=== PATIENT | female | born 1940 | race Caucasian/White ===

== ENCOUNTER 2017-09-13 17:03 | Emergency (ER) | payer MEDICARE, OTHER ==
[~2017-09-13] VITALS: Ht 160 cm; Wt 88.5 kg
[~2017-09-13 17:03] MED LIST: AMLO5 PO; GABA100 PO; Levaquin500 MG PO; METF500 PO; METO50 PO; Norco 5-325 Ta1 EACH PO; OMEPRAZOLE MAGN20 MG PO; PARO10 PO; PRAV20 PO; Pyridium200 MG PO; RANI150 PO; TOPI100 PO
[2017-09-13 18:28] LABS: BASOPHILS ABSOLUTE AUTO 0.03 K/mm3 (0.00-0.23); BASOPHILS PERCENT AUTO 1 % (0-2); EOSINOPHILS PERCENT AUTO 4 % (0-6); Hematocrit 41.3 % (33.0-51.0); Hemoglobin 13.3 g/dL (11.5-16.0); IMMATURE GRAN ABSOLUTE AUTO 0.01 K/mm3 (0.00-0.10); IMMATURE GRAN PERCENT AUTO 0 % (0-1); LYMPHOCYTES ABSOLUTE AUTO 1.67 K/mm3 (0.84-5.20); LYMPHOCYTES PERCENT AUTO 29 % (21-46); MONOCYTES ABSOLUTE AUTO 0.87 K/mm3 (0.16-1.47); MONOCYTES PERCENT AUTO 15 % (4-13); Mean Corpuscular HGB 29.9 pg (26.0-34.0); Mean Corpuscular HGB Conc 32.2 g/dL (31.5-36.5); Mean Corpuscular Volume 93 fL (80-100); NEUTROPHILS ABSOLUTE AUTO 2.97 K/mm3 (1.96-9.15); NEUTROPHILS PERCENT AUTO 52 % (41-73); Platelet Count 199 K/mm3 (150-400); RDW Coefficient Variation 13.2 % (11.7-14.2); Red Blood Cell Count 4.45 M/mm3 (3.80-5.20); White Blood Cell Count 5.75 K/mm3 (4.00-11.30)
[2017-09-13] MEDS ORDERED: Prednisone10 MG PO (18:51)
== END 2017-09-13 19:08 | disposition home or self-care (01) ==
LOC: ER 17:03
PROVIDERS: Physician Assistant
DX: M35.3 Polymyalgia rheumatica (principal); K21.9 Gastro-esophageal reflux disease without esophagitis; E11.40 Type 2 diabetes mellitus with diabetic neuropathy, unspecified; I10 Essential (primary) hypertension; F32.9 Major depressive disorder, single episode, unspecified; E78.5 Hyperlipidemia, unspecified; J45.909 Unspecified asthma, uncomplicated; Z88.0 Allergy status to penicillin; Z88.5 Allergy status to narcotic agent; Z91.041 Radiographic dye allergy status; Z79.51 Long term (current) use of inhaled steroids; Z79.899 Other long term (current) drug therapy
CPT/HCPCS: 85025; 85651; 86140; 99283

== ENCOUNTER → 2019-01-21 | Outpatient (CLI) | payer MEDICARE, OTHER ==
[~2019-01-21] MED LIST changes: +Prednisone10 MG PO
[2019-01-27 09:08] LABS: BRUSHITE 4.26 ratio (0.00-3.00); CALCIUM OXALATE 9.71 ratio (0.00-6.00); CALCIUM, URINE 177.6 mg/24 hr (100.0-300.0); CALCIUM, URINE 22.2 mg/dL (Not Estab.); CHLORIDE URINE 73 (110-250); CITRIC ACID (CITRATE) 824 mg/L (Not Estab.); CITRIC ACID(CITRATE) 659 mg/24 hr (320-1240); CREATININE, URINE 760.8 mg/24 hr (800.0-1800.0); CREATININE, URINE 95.1 mg/dL (Not Estab.); MAGNESIUM, URINE 5.5 mg/dL (Not Estab.); MONOSODIUM URATE 5.44 ratio (0.00-4.00); OSMOLALITY, URINE 524 (300-900); SODIUM, URINE 113 mmol/L (Not Estab.); SODIUM, URINE 90 (39-258); STRUVITE 0.05 ratio (0.00-1.00); URIC ACID 0.61 ratio (0.00-1.20); URINE VOLUME 800 mL/24 hr (600-1600); URINE VOLUME (PRESERVATIVE) 800 mL/24 hr (600-1600)
== END | disposition home or self-care (01) ==
LOC: LAB 07:00 → LAB SHORT 07:00
PROVIDERS: Urology
DX: N20.2 Calculus of kidney with calculus of ureter (principal)
CPT/HCPCS: 81003; 81050; 82131; 82140; 82340; 82436; 82507; 82570; 83735; 83935; 83945; 84105; 84133; 84300; 84392; 84560

== ENCOUNTER → 2022-05-11 | Outpatient (CLI) | payer MEDICARE ==
[~2022-05-11] MED LIST changes: +ATOR20 PO; +Aspir 8181 MG PO; +FURO20 PO; +GABA300 PO; +METO50ER PO; +OMEP20ER PO; +OXYGEN; +SULTRIDS PO; +Ventolin/Prove6.7 GM INH
== END | disposition home or self-care (01) ==
LOC: LAB SHORT 17:20 → LAB 17:20
DX: R30.0 Dysuria (principal)
CPT/HCPCS: 87077; 87086; 87186

== ENCOUNTER → 2022-05-17 | Outpatient (CLI) | payer MEDICARE, OTHER | END | disposition home or self-care (01) | LOC: PLD 14:56 → LAB SHORT 14:56 | DX: L72.9 Follicular cyst of the skin and subcutaneous tissue, unspecified (principal) | CPT/HCPCS: 88304 ==

== ENCOUNTER → 2022-05-20 | Outpatient (CLI) | payer MEDICARE, OTHER | END | disposition home or self-care (01) | LOC: LAB SHORT 17:01 → LAB 17:01 | DX: N39.0 Urinary tract infection, site not specified (principal) | CPT/HCPCS: 87086 ==

== ENCOUNTER 2022-09-12 10:53 | Day surgery (SDC) | payer MEDICARE, OTHER ==
[~2022-09-12] VITALS: Ht 160 cm; Wt 88.8 kg
[2022-09-12] MEDS ORDERED: DULO60 PO (12:10)
[2022-09-12] MEDS ORDERED: PRED5 PO (12:16)
[2022-09-12] MEDS ORDERED: GUAI600T33 PO (12:18)
--- NOTE | 2022-09-12 13:59 | NUR ---
09/12/22 1359 ARTUR HICKS 10MLS OF LIDOCAINE 1% WITH EPI 1:200,000 POURED ONTO STERILE FIELD FOR USE DURING CASE.
--- NOTE | 2022-09-12 14:54 | NUR ---
09/12/22 5024 LESLEY DEE VERY BRIANNA PATIENT. DID NOT HAVE ANY PAIN OR DISCOMFORT. EATING AND DRINKING W/O DIFFICULTY.
== END 2022-09-12 14:50 | disposition home or self-care (01) ==
LOC: ORSCSDS 10:53
PROVIDERS: Otolaryngology
PROC: 03BT0ZX Excision of Left Temporal Artery, Open Approach, Diagnostic (ICD-10-PCS; principal; 2022-09-12 12:30)
DX: M31.6 Other giant cell arteritis (principal); I10 Essential (primary) hypertension; J45.909 Unspecified asthma, uncomplicated; E11.9 Type 2 diabetes mellitus without complications; J44.9 Chronic obstructive pulmonary disease, unspecified; Z79.899 Other long term (current) drug therapy; Z79.84 Long term (current) use of oral hypoglycemic drugs
CPT/HCPCS: 82947; 88307; 88313; J2001; J2250; J3010; J7120

== ENCOUNTER → 2024-01-24 | Outpatient (CLI) | payer MEDICARE, OTHER ==
[~2024-01-24] MED LIST changes: +DULO60 PO; +GUAI600T33 PO; +PRED5 PO
[2024-01-24 17:02] LABS: Source, Urine Voided
[2024-01-24 17:17] LABS: Appearance, Urine Hazy (Clear); Bilirubin, Urine Neg (Neg); Blood, Urine 5+ (Neg); Color, Urine Yellow (P-Yellow); Glucose Qualitative, Urine 2+ (Neg); Ketones, Urine 1+ (Neg); Leukocyte Esterase, Urine 2+ (Neg); Nitrite, Urine Neg (Neg); Protein, Urine 2+ (Neg); Urobilinogen, Urine NORM (Normal)
[2024-01-24 17:23] LABS: Red Blood Cells, Urine 50-100 /hpf (0-2); Squamous Epithelial Cells Few /hpf (Few)
[2024-01-24 17:24] LABS: Bacteria Mod /hpf
[2024-01-24 17:25] LABS: Transitional Epithelial Cells Rare /hpf (0-Rare)
== END ==
LOC: LAB SHORT 17:00 → LAB 17:00 → LAB FUT 01-23 14:05
PROVIDERS: Internal Medicine
DX: N39.0 Urinary tract infection, site not specified (principal)
CPT/HCPCS: 81001; 87086

== ENCOUNTER 2024-03-30 11:39 | Observation (INO) | payer MEDICARE, OTHER ==
[~2024-03-30] VITALS: Ht 160 cm; Wt 93.9 kg
[2024-03-30 12:55] LABS: BASOPHILS ABSOLUTE AUTO 0.03 K/mm3 (0.00-0.23); BASOPHILS PERCENT AUTO 0 % (0-2); EOSINOPHILS ABSOLUTE AUTO 0.22 K/mm3 (0.00-0.68); EOSINOPHILS PERCENT AUTO 3 % (0-6); Hematocrit 41.9 % (33.0-51.0); Hemoglobin 13.4 g/dL (11.5-16.0); IMMATURE GRAN ABSOLUTE AUTO 0.02 K/mm3 (0.00-0.10); IMMATURE GRAN PERCENT AUTO 0 % (0-1); LYMPHOCYTES ABSOLUTE AUTO 2.05 K/mm3 (0.84-5.20); LYMPHOCYTES PERCENT AUTO 29 % (21-46); MONOCYTES PERCENT AUTO 7 % (4-13); Mean Corpuscular HGB 30.1 pg (26.0-34.0); Mean Corpuscular Volume 94 fL (80-100); Mean Platelet Volume 9.9 fL (9.1-12.4); NEUTROPHILS ABSOLUTE AUTO 4.28 K/mm3 (1.96-9.15); NEUTROPHILS PERCENT AUTO 60 % (41-73); Platelet Count 265 K/mm3 (150-400); RDW Coefficient Variation 13.9 % (11.7-14.2); RDW Standard Deviation 47.8 fL (35.1-46.3); Red Blood Cell Count 4.45 M/mm3 (3.80-5.20)
[2024-03-30] MEDS ORDERED: Meclizine HCl 25 MG Tab PO ONE (12:55)
[2024-03-30 13:00] LABS: Albumin, Blood 3.3 g/dL (3.4-5.0); Albumin/Globulin Ratio 0.8 (0.8-1.8); Bilirubin, Total 0.2 mg/dL (0.1-1.0); Bun/Creatinine Ratio 25.6 (12.0-20.0); Calcium, Blood 9.7 mg/dL (8.5-10.1); Creatinine, Blood 0.74 mg/dL (0.40-1.00); Globulin, Blood 4.1 g/dL (2.2-4.0); Potassium, Blood 3.8 mmol/L (3.5-5.5); Total Protein, Blood 7.4 g/dL (6.4-8.2)
[2024-03-30] MEDS ORDERED: NS 1,000 ML IV SCH (13:00)
[2024-03-30 14:11] LABS: Source, Urine Clean Catch
[2024-03-30 14:19] LABS: Bilirubin, Urine Neg (Neg); Blood, Urine 3+ (Neg); Glucose Qualitative, Urine Neg (Neg); Ketones, Urine Neg (Neg); Leukocyte Esterase, Urine Neg (Neg); Nitrite, Urine Neg (Neg); Protein, Urine 1+ (Neg); Urobilinogen, Urine NORM (Normal)
[2024-03-30 14:35] LABS: Appearance, Urine Hazy (Clear); Color, Urine Pale Yellow (P-Yellow)
[2024-03-30 14:36] LABS: Bacteria Many /hpf; Calcium Oxalate Crystals Few /hpf; Squamous Epithelial Cells Mod /hpf (Few)
[2024-03-30] MEDS ORDERED: Magnesium Hydroxide Conc 10 ML UDC PO PRN (14:50)
[2024-03-30] MEDS ORDERED: FLU VACC TS2024-25(6MOS UP)/PF 45 MCG/0.5 ML SYRINGE IM SCH (14:50)
[2024-03-30] MEDS ORDERED: Acetaminophen 325 MG TABLET PO PRN (14:55)
[2024-03-30] MEDS ORDERED: Aspirin 325 MG Tab PO SCH (15:00)
[2024-03-30] MEDS ORDERED: HydrALAZINE HCl 20 MG / ML 1ML Vial IV PRN (15:00)
[2024-03-30] MEDS ORDERED: LORazepam 2 MG/ML 1ML Injection IV PRN (15:05)
[2024-03-30 16:02] VITALS: BP 203/109
[2024-03-30] MEDS ORDERED: Insulin Human Lispro 100 Units/ML 3ML Syringe SC SCH (16:30)
[2024-03-30 17:43] VITALS: BP 180/90
[2024-03-30] MEDS ORDERED: CENTRUM SILVER1 EAC2 PO (18:04)
[2024-03-30] MEDS ORDERED: Percocet 10-321 EACH PO (18:07)
--- NOTE | 2024-03-30 18:24 | NUR ---
SHIFT SUMMARY PT A&OX4-FORGETFUL AT TIMES, AMB TO THE B[facility] W/ 1P ASSIST, TOLERATING PO, AND DENIED PAIN. PT WAS HYPERTENSIVE UPON ARRIVAL TO THE FLOOR AND MEDICATED PER EMAR. BP IMPROVED, BUT REMAINS ELEVATED. PT CONT TO C/O DIZZINESS W/ MOVEMENT. PT PLAN TO HAVE MRI TONIGHT. NO OTHER ACUTE CHANGES. CALL LIGHT WITHIN REACH AND PT ABLE TO MAKE NEEDS KNOWN.
[2024-03-30 19:25] VITALS: BP 151/70
[2024-03-30] MEDS ORDERED: Docusate Sodium 100 MG Cap PO SCH (21:00)
[2024-03-31] VITALS (8 sets, daily range): BP systolic 137–208; BP diastolic 55–118
[2024-03-31] MEDS ORDERED: OxyCODONE 10/Acetamin 325 TABLET PO PRN (06:20)
--- NOTE | 2024-03-31 07:46 | NUR ---
END OF SHIFT SUMMARY PT WOKE UP AT 0600 HAVING WHAT APPEARED TO BE A PANIC ATTACK. SHE WAS SCREAMING AND CRYING VERY LOUDLY AND BEGGING FOR HELP. SHE WAS BREATHING VERY HARD AND DRENCHED IN SWEAT. SHE SAID HER LEGS HAVE NEVER HURT THIS BAD AND SHE WAS BEGGING FOR HER HOME PERCOCET WHICH HAS NOT BEEN ORDERED. SHE SAID SHE WAS WITHDRAWING FROM HER PAIN MEDS AND FELT LIKE SHE WAS "DYING". SHE SAID, "IF YOU GUYS ARENT GOING TO GIVE ME MY PAIN PILLS THEN JUST PUT ME ON HOSPICE AND LET ME !!!". MD NOTIFIED. PERCOCET REORDERED. PRESCRIPTION IS 1-2 TABS BUT PT SAYS SHE "ALWAYS TAKES 2". 2 GIVEN. 1 HOUR LATER PT IS ALERT AND HAPPY AND SAYS SHE DOESNT WANT TO ANYMORE AND THAT HER PAIN IS GONE.
[2024-03-31] MEDS ORDERED: Enoxaparin 40 MG/0.4 ML SYR SC SCH (09:00)
[2024-03-31] MEDS ORDERED: Losartan Potassium 50 MG Tab PO SCH (09:00)
[2024-03-31] MEDS ORDERED: Multivitamins/Minerals 1 Tab PO SCH (09:00)
[2024-03-31] MEDS ORDERED: AmLODIPine Besylate 5 MG Tab PO SCH (09:00)
[2024-03-31] MEDS ORDERED: DOCU100 PO (15:24)
[2024-03-31] MEDS ORDERED: LOSA50 PO (15:24)
[2024-03-31] MEDS ORDERED: AMLO10 PO (15:24)
[2024-03-31] MEDS ORDERED: DULO60 PO (15:40)
[2024-03-31] MEDS ORDERED: SULFAMETHOXAZO1 EAC1 PO (15:40)
[2024-03-31] MEDS ORDERED: GABA600 PO (15:41)
[2024-03-31] MEDS ORDERED: METF500C PO (15:42)
[2024-03-31] MEDS ORDERED: METO50ER PO (15:42)
[2024-03-31] MEDS ORDERED: PRED5 PO (15:43)
[2024-03-31] MEDS ORDERED: HYDHCL25 PO (15:59)
[2024-03-31] MEDS ORDERED: Omeprazole 20 MG CapCR PO SCH (16:30)
--- NOTE | 2024-03-31 16:55 | NUR ---
DISCHARGE NOTE PT DISCHARGED HOME. PT A&OX4, VSS, AMB W/ SBA, TOLERATING PO, VOIDING, AND PAIN MANAGED. PT AND PT'S PROVIDED W/ VERBAL AND WRITTEN INSTRUCTIONS AND REPORTED UNDERSTANDING. BELONINGS WERE RETURNED AND PT ESCOURTED OUT VIA W/C BY ROSALBA FISHER.
[2024-03-31] MEDS ORDERED: Trimethoprim/Sulfamethoxazole DS Tab PO SCH (17:00)
[2024-03-31] MEDS ORDERED: PredniSONE 5 MG Tab PO SCH (21:00)
[2024-03-31] MEDS ORDERED: DULoxetine HCL 60 MG Capsule DR PO SCH (21:00)
[2024-03-31] MEDS ORDERED: Gabapentin 300 MG Cap PO SCH (21:00)
== END 2024-03-31 17:07 | disposition home health service (06) ==
LOC: ER 11:39 → MEDS 11:40
PROVIDERS: Student in an Organized Health Care Education/Training Program; ADMIT Internal Medicine
DX: I16.0 Hypertensive urgency (principal); M31.6 Other giant cell arteritis; E78.5 Hyperlipidemia, unspecified; E11.42 Type 2 diabetes mellitus with diabetic polyneuropathy; Z66 Do not resuscitate; Z88.0 Allergy status to penicillin; Z88.5 Allergy status to narcotic agent; Z88.8 Allergy status to other drugs, medicaments and biological substances; Z91.041 Radiographic dye allergy status; Z79.84 Long term (current) use of oral hypoglycemic drugs
CPT/HCPCS: 70450; 70551; 80053; 81001; 82947; 83735; 84484; 85025; 87086; 93005; 93010; 96360; 97110; 97116; 97162; 99285-25; A9270; G0378; J0360; J1650; J7030

== ENCOUNTER 2024-04-04 13:07 | Inpatient (IN) | payer MEDICARE, OTHER ==
[~2024-04-04] VITALS: Ht 157.5 cm; Wt 93.0 kg
[~2024-04-04 13:07] MED LIST changes: +AMLO10 PO; +CENTRUM SILVER1 EAC2 PO; +DOCU100 PO; +GABA600 PO; +HYDHCL25 PO; +LOSA50 PO; +METF500C PO; +Percocet 10-321 EACH PO; +SULFAMETHOXAZO1 EAC1 PO
[2024-04-04] MEDS ORDERED: Lactated Ringer's 1,000 ML IV ONE (14:30)
[2024-04-04] MEDS ORDERED: Ondansetron HCl 2 MG / ML 2ML Vial IV ONE (14:30)
[2024-04-04 15:03] LABS: BASOPHILS ABSOLUTE AUTO 0.02 K/mm3 (0.00-0.23); BASOPHILS PERCENT AUTO 0 % (0-2); EOSINOPHILS ABSOLUTE AUTO 0.07 K/mm3 (0.00-0.68); EOSINOPHILS PERCENT AUTO 1 % (0-6); Hematocrit 37.3 % (33.0-51.0); Hemoglobin 11.7 g/dL (11.5-16.0); IMMATURE GRAN ABSOLUTE AUTO 0.03 K/mm3 (0.00-0.10); IMMATURE GRAN PERCENT AUTO 0 % (0-1); LYMPHOCYTES ABSOLUTE AUTO 1.85 K/mm3 (0.84-5.20); LYMPHOCYTES PERCENT AUTO 17 % (21-46); MONOCYTES PERCENT AUTO 12 % (4-13); Mean Corpuscular HGB 30.6 pg (26.0-34.0); Mean Corpuscular HGB Conc 31.4 g/dL (31.5-36.5); Mean Corpuscular Volume 98 fL (80-100); Mean Platelet Volume 9.1 fL (9.1-12.4); NEUTROPHILS ABSOLUTE AUTO 7.51 K/mm3 (1.96-9.15); NEUTROPHILS PERCENT AUTO 70 % (41-73); Platelet Count 248 K/mm3 (150-400); RDW Coefficient Variation 14.6 % (11.7-14.2); RDW Standard Deviation 52.2 fL (35.1-46.3); Red Blood Cell Count 3.82 M/mm3 (3.80-5.20); White Blood Cell Count 10.78 K/mm3 (4.00-11.30)
[2024-04-04 15:28] LABS: Free Thyroxine 0.82 ng/dL (0.70-1.60); Magnesium, Blood 2.2 mg/dL (1.6-2.4)
[2024-04-04 15:32] LABS: Albumin, Blood 3.1 g/dL (3.4-5.0); Albumin/Globulin Ratio 0.9 (0.8-1.8); Bilirubin, Total 0.2 mg/dL (0.1-1.0); Bun/Creatinine Ratio 7.9 (12.0-20.0); Calcium, Blood 8.4 mg/dL (8.5-10.1); Creatinine, Blood 4.66 mg/dL (0.40-1.00); Globulin, Blood 3.6 g/dL (2.2-4.0); Potassium, Blood 4.3 mmol/L (3.5-5.5); Thyroid Stimulating Hormone 0.845 uIU/mL (0.360-4.800); Total Protein, Blood 6.7 g/dL (6.4-8.2)
[2024-04-04 15:53] LABS: Influenza A, PCR NEGATIVE (NEGATIVE); Influenza B, PCR NEGATIVE (NEGATIVE); Resp Syncytial Virus, PCR NEGATIVE (NEGATIVE); SARS-Cov-2 (COVID-19) PCR, MMC NEGATIVE (NEGATIVE)
[2024-04-04 19:23] LABS: Source, Urine Clean Catch
[2024-04-04 19:30] LABS: Appearance, Urine Hazy (Clear); Blood, Urine 5+ (Neg); Color, Urine Amber (P-Yellow); Glucose Qualitative, Urine Neg (Neg); Ketones, Urine Neg (Neg); Leukocyte Esterase, Urine 3+ (Neg); Nitrite, Urine Neg (Neg); Protein, Urine 2+ (Neg); Urobilinogen, Urine NORM (Normal)
[2024-04-04 19:36] LABS: Bilirubin, Urine 3+ (Neg)
[2024-04-04 19:37] LABS: Bacteria Many /hpf; Squamous Epithelial Cells Mod /hpf (Few); White Blood Cells, Urine 25-50 /hpf (0-5)
[2024-04-04 19:38] LABS: Calcium Oxalate Crystals Few /hpf; Transitional Epithelial Cells Few /hpf (0-Rare)
[2024-04-04 19:39] LABS: Hyaline Casts 0-2 /lpf (0-2); Renal Epithelial Rare /hpf (0-Rare)
[2024-04-04] MEDS ORDERED: CefTRIAXone Sodium 1,000 MG in NS 100 ML IV ONE (20:00)
[2024-04-04] MEDS ORDERED: Ondansetron HCl 2 MG / ML 2ML Vial IV PRN (22:25)
[2024-04-04] MEDS ORDERED: Acetaminophen 325 MG TABLET PO PRN (22:25)
[2024-04-04] MEDS ORDERED: FentaNYL Citrate 50 MCG/ML 2 ML Injection IV PRN (22:25)
[2024-04-04] MEDS ORDERED: FLU VACC TS2024-25(6MOS UP)/PF 45 MCG/0.5 ML SYRINGE IM SCH (22:25)
[2024-04-04] MEDS ORDERED: NS 1,000 ML IV SCH (22:25)
[2024-04-04] MEDS ORDERED: Heparin Sodium,Porcine 5,000 UNIT/0.5 ML SDV SC SCH (23:00)
[2024-04-04] MEDS ORDERED: NS 1,000 ML IV ONE (23:01)
[2024-04-05 00:19] VITALS: BP 126/52
--- NOTE | 2024-04-05 01:15 | NUR ---
ADMIT NOTE 84 YR OLD FEMALE ADMITTED TO FLOOR FROM THE ED WITH DX OF MARYANNE. ALSO AWAITING GI PANEL TO R/O C-DIFF, AND IS ON CONTACT ENTERIC PRECAUTIONS UNTIL IT IS RULED OUT. ACCOMPANIED BY WHO ANSWERED MOST OF THE QESIONS PT IS LETHARGIC AND HAS MULTIPLE TREMORS OF ALL 4 EXT AND FACE AND TORSO. ON O2 PER NC. IVF OF NS INFUSING AT 75 ML/HR. REPOSITIONED IN BED FOR COMFORT, SEE PICS OF SKIN ANOMALIES. ORIENTED TO USE OF CALL LIGHT. CALL LIGHT IN REACH, RAILS UP X 2 AND BED IN LOW POSITION FOR SAFETY. WILL CONT TO MONITOR.
--- NOTE | 2024-04-05 03:28 | NUR ---
SHIPPING ASSISTANT SUMMARY VSS. WAS ADMITTED TO FLOOR EARLIER IN THE SHIFT WITH DX OF MARYANNE AND POSSIBLE C-DIFF, WAITING FOR STOOL/GI SAMPLE TO RULE IT OUT. ISOLATION PRECAUTIONS IN PLACE UNTIL IT IS RULED OUT. AT BEDSIDE WHO ANSWERS MOST OF QUESTIONS PT HAVING APPARENT TROUBLE TALKING DUE TO AMS, AND TREMORS OF BOSY AND APPENDAGES. ARRIVED WITH BALL CATH, WILL DC CATH THIS SHIFT AND PLACE PUREWICK DUE TO SEVERE LETHARGY AND TREMORS AND POTENTIAL FOR FALLING OTHERWISE IN TRANSFERRING TO COMMODE. O2 PER NC AT 2L/MIN. IVF OF NS INFUSING AT 75 ML/HR PT IS NPO. HAS BEEN RESTING WITH FEW INTERRUPTIONS. CACLL LIGHT IN REACH, RAILS UP X 2 AND BED IN LOW POSITION FOR SAFETY. WILL CONTINUE TO MONITOR
[2024-04-05 05:24] LABS: BASOPHILS ABSOLUTE AUTO 0.03 K/mm3 (0.00-0.23); BASOPHILS PERCENT AUTO 0 % (0-2); EOSINOPHILS ABSOLUTE AUTO 0.16 K/mm3 (0.00-0.68); EOSINOPHILS PERCENT AUTO 1 % (0-6); Hemoglobin 11.2 g/dL (11.5-16.0); IMMATURE GRAN ABSOLUTE AUTO 0.05 K/mm3 (0.00-0.10); IMMATURE GRAN PERCENT AUTO 0 % (0-1); LYMPHOCYTES ABSOLUTE AUTO 1.84 K/mm3 (0.84-5.20); LYMPHOCYTES PERCENT AUTO 16 % (21-46); MONOCYTES ABSOLUTE AUTO 1.36 K/mm3 (0.16-1.47); MONOCYTES PERCENT AUTO 12 % (4-13); Mean Corpuscular HGB 30.5 pg (26.0-34.0); Mean Corpuscular HGB Conc 31.1 g/dL (31.5-36.5); Mean Corpuscular Volume 98 fL (80-100); Mean Platelet Volume 9.6 fL (9.1-12.4); NEUTROPHILS ABSOLUTE AUTO 8.32 K/mm3 (1.96-9.15); NEUTROPHILS PERCENT AUTO 71 % (41-73); Platelet Count 237 K/mm3 (150-400); RDW Coefficient Variation 14.6 % (11.7-14.2); RDW Standard Deviation 52.8 fL (35.1-46.3); Red Blood Cell Count 3.67 M/mm3 (3.80-5.20); White Blood Cell Count 11.76 K/mm3 (4.00-11.30)
[2024-04-05] MEDS ORDERED: Hydrocortisone Sod Succinate 100 MG Vial IV SCH (06:00)
[2024-04-05 06:04] LABS: Albumin, Blood 3.1 g/dL (3.4-5.0); Albumin/Globulin Ratio 0.9 (0.8-1.8); Bilirubin, Total 0.2 mg/dL (0.1-1.0); Bun/Creatinine Ratio 7.6 (12.0-20.0); Calcium, Blood 8.6 mg/dL (8.5-10.1); Creatinine, Blood 5.63 mg/dL (0.40-1.00); Globulin, Blood 3.5 g/dL (2.2-4.0); Potassium, Blood 4.7 mmol/L (3.5-5.5); Total Protein, Blood 6.6 g/dL (6.4-8.2)
[2024-04-05] MEDS ORDERED: Insulin Human Lispro 100 Units/ML 3ML Syringe SC SCH (07:30)
[2024-04-05] MEDS ORDERED: NS 1,000 ML IV SCH ×3 (08:05→12:00)
[2024-04-05 08:50] VITALS: BP 97/64
--- NOTE | 2024-04-05 09:23 | NUR ---
ASSISTANT STORE MANAGER TRAINEE REPORTED PATIENT HAVING SOFT BP AND SPO2 83% ON LPM/NC. PATIENT BREATHING MOSTLY THROUGH MOUTH. STATES SHE USES LPM/NC AT HOME (WITH WHICH SHE IS RARELY COMPLIANT)BUT DOES NOT HAVE CPAP. PER VANDANA SEGUNDO FOR CPAP AND ORDERS TO TITRATE O2 PRN AND CONTINUOUS BIOX. ORDERS PLACED.
--- NOTE | 2024-04-05 09:29 | NUR ---
LEFT VOICEMAIL ON DR GUTIERREZ'S CELL PHONE.
--- NOTE | 2024-04-05 11:14 | NUR ---
RT TO BEDSIDE TO SET UP CPAP. PATIENT NOTED TO BE HAVING INCREASED SPASMS OF BLEs; THIS WAS NOTED UPON SHIFT CHANGE BUT APPEARS TO HAVE WORSENED. RT CALL TO DR MORENO FOR Rx FOR ABG R/O CO2 RETENTION. DR MORENO TO BEDSIDE.
[2024-04-05 11:25] LABS: PCO2 Arterial 61.4 mmHg (35-45); PO2 Arterial 74.7 mmHg (80-100); pH Blood Arterial 7.23 (7.35-7.45)
[2024-04-05] MEDS ORDERED: Sodium Bicarb 8.4% Inj 150 MEQ in Dextrose 5% 1,000 ML IV SCH (12:05)
--- NOTE | 2024-04-05 15:54 | NUR ---
PALLIATIVE CARE NURSE, RUI, NOTIFIED OF PALLIATIVE CARE CONSULT.
[2024-04-05 15:57] VITALS: BP 113/49
--- NOTE | 2024-04-05 18:07 | NUR ---
Day Shift Summary: A&Ox2-3. Sleeping majority of the shift and has been difficult to rouse; painful and verbal stimuli, mostly. Able to respond to questions about who and where she is, and who her is, but quickly drifts back off to sleep. Spasms and twitching noted in hands and feet. SpO2 dropped to 83% this morning on 2LPM/NC. ABGs drawn: pH 7.32 and PCO2 61; started on BiPAP. IV left hand infiltrated; new one placed left forearm with US by Kya Sethi RN. NS HCO3 both running @ 50mL/hr per Dr. Pires. Decreased twitching and spasms noted since HCO3 and BiPAP initiated. , Trevor, at bedside most of day. August patent and draining light yellow urine to gravity. Bladder scan yielded results of empty bladder. Unable to send stool sample as pt did not stool today. Palliative consult placed; MARQUEZ Méndez, notified and will likely see tomorrow. Blood and urine cultures pending. Labs ordered for tomorrow. Repositioning provided q2h to promote skin integrity. Continuous Bi-Ox on. Bed in lowest position. Call light within reach. All needs met. at bedside. Oncoming nurse notified.
[2024-04-05 19:54] VITALS: BP 112/48
[2024-04-05] MEDS ORDERED: CefTRIAXone Sodium 1,000 MG in NS 100 ML IV SCH (21:00)
[2024-04-06 02:16] VITALS: BP 99/53
--- NOTE | 2024-04-06 03:17 | NUR ---
GARDE MANGER SUMMARY BP LOW, OTHERWISE VSS. VERBAL RESPONSE MORE NOTICABLE TO NIGHT THAN 24 HR AGO, SHE WAS LETHARGIC AND DID NOT RESPOND MUCH TO VERBAL CUES. REMAINS AT BEDSIDE FOR COMFORT AND TO HELP WITH COMMUNICATIONS WITH PT. QUINN IN USE FOR RETENTION BUT STILL NO BM FOR STOOL SAMPLE TO R/O C-DIFF. REMAINS NPO. ACCUCHECKS Q 6 HR. LAST ONE WAS 139. CONTINUES TO TWITCH/TREMORS OF ALL 4 EXT AND TORSO. MED TELE SINUS AT 97. ON BIPAP TO KEEP O2 SATS IN THE 90'S. 2L/MIN BLEED IN. SLEEPING INTERMITTENTLY. REPOSITIONED INTERMITENTLY FOR CONFORT AND SKIN MAINTENANCE. CALL LIGHT IN REACH, RAILS YO X 2 AND BED IN LOW POSITION FOR SAFETY. ISOLATION PRECAUTIONS CONTINUE. WILL CONT TO MONITOR
[2024-04-06 05:06] LABS: Hematocrit 35.2 % (33.0-51.0)
[2024-04-06 05:30] LABS: Albumin, Blood 2.9 g/dL (3.4-5.0); Anion Gap 11 mmol/L (3-11); Blood Urea Nitrogen 47 mg/dL (8-24); Bun/Creatinine Ratio 9.8 (12.0-20.0); CO2, Blood 27 mmol/L (21-32); Calcium, Blood 8.7 mg/dL (8.5-10.1); Chloride, Blood 107 mmol/L (98-108); Creatinine, Blood 4.82 mg/dL (0.40-1.00); Glomerular Filtration Rate 8 (60-); Glucose, Blood 164 mg/dL (70-99); Magnesium, Blood 2.3 mg/dL (1.6-2.4); Phosphorus, Blood 5.9 mg/dL (2.5-4.9); Sodium, Blood 140 mmol/L (136-145)
[2024-04-06 07:56] VITALS: BP 140/68
[2024-04-06 08:36] LABS: Base Excess Venous 3.1 mmol/L; Bicarbonate Venous 25.9 mmol/L (24.0-30.0)
--- NOTE | 2024-04-06 09:00 | NUR ---
pt laying in bed, with eyes open, very minimally responsive, spouce at bedside, pt able to answer a few yes/no questions, not able to follwo commands well, lungs are dim t/o on bipap, hrr, tele in place running sr 80's to low 100's, no edema noted, ppp+1, cap refill <3 sec, vs stable, afebrile, piv to lfa site is clear and patent, btx4, abd flat soft nontender, voids via indwelling gallardo for retention, draining clear yellow urine, skin frail, no wounds, not really moving herself, maikel, call light in reach.
[2024-04-06 15:12] VITALS: BP 167/70
--- NOTE | 2024-04-06 19:10 | NUR ---
pt has continued to run bicarb and saline, spouce in room most of the day, pt has been turned every two hrs, and had a bedbath today, no acute changes this shift, call light in reach.
[2024-04-06 19:38] VITALS: BP 145/67
[2024-04-07 02:00] VITALS: BP 151/78
[2024-04-07] MEDS ORDERED: OxyCODONE 5 mg/Acetamin 325 mg TABLET PO PRN (03:15)
[2024-04-07 05:39] LABS: Hematocrit 33.7 % (33.0-51.0)
--- NOTE | 2024-04-07 06:28 | NUR ---
Shift Summary Pt able to communicate more this evening, speaking in small sentinces and answering questions. Her neuropathic pain returned in her feet and I called the hospitalist who restarted her home Percocet although with an altered dose for concerns of confusion. She is rcving NS and sodium barcarb at 50. is at the bedside. Percocet was given crushed in applesauce d/t swallowing concerns.
[2024-04-07 06:55] LABS: Albumin, Blood 2.6 g/dL (3.4-5.0); Anion Gap 12 mmol/L (3-11); Blood Urea Nitrogen 46 mg/dL (8-24); CO2, Blood 28 mmol/L (21-32); Calcium, Blood 8.5 mg/dL (8.5-10.1); Chloride, Blood 107 mmol/L (98-108); Creatinine, Blood 1.84 mg/dL (0.40-1.00); Glomerular Filtration Rate 26 (60-); Glucose, Blood 172 mg/dL (70-99); Phosphorus, Blood 2.8 mg/dL (2.5-4.9); Potassium, Blood 4.3 mmol/L (3.5-5.5); Sodium, Blood 143 mmol/L (136-145)
[2024-04-07 08:16] VITALS: BP 175/74
[2024-04-07] MEDS ORDERED: Hydrocortisone Sod Succinate 100 MG Vial IV SCH (09:00)
[2024-04-07] MEDS ORDERED: Gabapentin 300 MG Cap PO SCH (11:50)
--- NOTE | 2024-04-07 13:25 | NUR ---
Met with pt and her at bedside. They have discussed " with [facility]" and hospice at length. They asked for more information on hospice from this RN. They also met with a close friend in the room to discuss options. The patient has stated her quality of life is non-existent. She also states she is "just tired and in pain." They requested another visit this afternoon, and state they made the decision and request to change plan of care to comfort care. Tatiannaes received from Dr. Perry.
[2024-04-07] MEDS ORDERED: Morphine Sulfate 20 MG/1ML 1 ML Oral Syringe SL PRN (13:40)
[2024-04-07] MEDS ORDERED: LORazepam 1 MG Tab PO PRN (13:40)
[2024-04-07] MEDS ORDERED: FentaNYL 25 MCG Patch TOP SCH (14:35)
--- NOTE | 2024-04-07 17:22 | NUR ---
PATIENT TRANSITIONED TO COMFORT CARE TODAY. AT BEDSIDE THROUGHOUT THE DAY. REPORTS LEG PAIN WHICH HAS IMPROVED SOME. PERCOCET, ROXANOL AND FENTANYL PATCH PLACED TO CONTROL. 3LO2 VIA OXYMASK AT PATIENT REQUEST. PATIENT TAKING BITES, BUT REPORTS POOR APPETITE. DENIES ANY NAUSEA OR ABDOMINAL PAIN. FOELY TO GRAVITY WITH CLEAR/YELLOW URINE OUTPUT. NS INFUSING AT 50ML/HR, PATIENT TO BE SALINE LOCKED AFTER THIS BAG. ATIVAN GIVEN THIS EVENING FOR STATED ANXIETY AND FEAR OF FALLING ASLEEP. TURNING AND ORAL CARE PERFORMED Q2 HOURS THIS SHIFT.
--- NOTE | 2024-04-08 06:39 | NUR ---
Shift Summary Pt is on comfort care. She rcvd 5 mg Roxinol twice for pain. She is currently on 4L Oxymask up from 3L because she was feeling short of breath. She has been removing her mask unintentionally all night and I gently put it back on when she does. Her is in the room with her. She is having trouble speaking tonight but seems to understand what is being said. She slept comfortably t/o most of the night. August is in place and patent draining yellow urine. She finished her last bag of IVF.
[2024-04-08 07:24] LABS: Albumin, Blood 2.8 g/dL (3.4-5.0); Anion Gap 12 mmol/L (3-11); Blood Urea Nitrogen 36 mg/dL (8-24); Bun/Creatinine Ratio 36.4 (12.0-20.0); CO2, Blood 30 mmol/L (21-32); Chloride, Blood 108 mmol/L (98-108); Creatinine, Blood 0.99 mg/dL (0.40-1.00); Glomerular Filtration Rate 56 (60-); Glucose, Blood 136 mg/dL (70-99); Magnesium, Blood 1.6 mg/dL (1.6-2.4); Phosphorus, Blood 1.6 mg/dL (2.5-4.9); Potassium, Blood 3.9 mmol/L (3.5-5.5); Sodium, Blood 146 mmol/L (136-145)
[2024-04-08] MEDS ORDERED: Sodium Phosphate 20 MM in Dextrose 5% 500 ML IV STA (07:44)
--- NOTE | 2024-04-08 18:31 | NUR ---
SHIFT SUMMARY: PT LETHARGIC THROUGHOUT THE DAY. DOES NOT ANSWER QUESTIONS UNLESS THEY ARE YES/NO QUESTIONS. PT DID NOT EXHIBIT PAIN THROUGHOUT MOST OF THE SHIFT. SHE DID C/O NECK PAIN THIS MORNING BUT DENIED PAIN REST OF THE DAY. PT COMFORT WAS MANAGED WITH REPOSITIONING Q2 HOURS AND ORAL CARE. PT CONTINUES TO BE ON 4 LPM VIA NC. SPOUSE DOES NOT WANT PT WEANED OFF OF OXYGEN. PT BALL CATHETER PATENT AND DRAINING CLEAR YELLOW URINE. SPOUSE IN AND OUT THROUGHOUT THE DAY. PT EXPECTED TO DISCHARGE HOME ON SATURDAY WITH HOSPICE SERVICES.
[2024-04-08] MEDS ORDERED: LORazepam 2 MG/ML 1ML Injection IV PRN (20:55)
--- NOTE | 2024-04-09 05:46 | NUR ---
SHIFT SUMMARY NOC PT A/O X 0. ON COMFORT CARE MESASURES. IS AT BEDSIDE. PT ON O2 4L/NC WITH TAPE KEEPING NC IN PLACE DUT TO PT REMOVING O2 AND DESATURATING INTO LOW 80'S, AGREES WITH THIS. BALL IN PLACE FOR COMFORT. PT GIVEN 2 DOSES IV ATIVAN 1 MG FOR RESTLESSNESS. Q2H/PRN REPOSITIONING. PT HAD XL LOOSE BM. PT GOING HOME ON HOSPICE 04/10/24, DME WILL BE DELIVERED TO HOME TODAY. PT CURRENTLY RESTING WITH BED IN LOWEST POSITION, AND CALL LIGHT WITHIN REACH.
--- NOTE | 2024-04-09 16:54 | NUR ---
SHIFT NOTE: PT IS ON COMFORT CARE. SHE HAS BEEN MINIMALLY RESPONSIVE TO VERBAL STIMULI. SHE IS WARM TO THE TOUCH. LUNG SOUNDS ARE DIMISHED WITH SLIGHT WHEEZING. SHE HAS O2 FOR COMFORT PER FAMILY REQUEST. SHE HAS A BALL DRAINING TO GRAVITY, FAMILY HAS REQUESTED IT REMAINS IN PLACE FOR DISCHARGE. SHE HAS NOT HAD A BM THIS SHIFT. SHE HAS BEEN REPOSITIONED BY STAFF TO MAINTAIN COMFORT. WILL CONTINUE TO MONITOR AND SUPPORT FAMILY AND REPORT TO ONCOMING RN
--- NOTE | 2024-04-10 05:32 | NUR ---
SHIFT SUMMARY NOC PT A/O X O. ON COMFORT CARE MEASURES. AT BEDSIDE. PULSE OXIMETRY DISCONTINUED DURING DAY SHIFT. PT ON 3L/NC FOR COMFORT, REQUIRING TAPE TO KEEP PT FROM TAKING OFF O2. BALL IN PLACE FOR COMFORT. PT GIVEN ONE DOSE ATIVAN FOR AGITATION/RESTLESSNESS. PT SPOUSE COMFIRMS THAT DME WAS DELIVERED TO HOME YESTERDAY, AND HAS HAS SERIOUS DOUBTS IF THEY ARE GOING TO BE ABLE TO CARE FOR PT WHEN HOME ALONE. PT TO DISCHARGE HOME TODAY WITH [facility]IA [facility]. PT CURRENTLY RESTING WITH BED IN LOWEST POSITION, AND CALL LIGHT WITHIN REACH.
[2024-04-10] MEDS ORDERED: Hydrocortisone Sod Succinate 100 MG Vial IV SCH (09:00)
[2024-04-10] MEDS ORDERED: FENTANYL1 EA10 TOP (11:41)
[2024-04-10] MEDS ORDERED: MORP20L PO (11:44)
[2024-04-10] MEDS ORDERED: Ativan1 MG PO (11:45)
--- NOTE | 2024-04-10 13:14 | NUR ---
DISCHARGE NOTE: MEDICAL TRANSPORT ARRIVED AND PATIENT WAS TRANSFERRED TO THE BED TO THE [facility]. PATIENT'S HAD GATHERED PATIENT'S BELONGINGS AND PRESCRIPTION SENT WITH HOSPICE NURSE SANA. NO SIGNS OR SYMPTOMS OF DISTRESS DURING DISCHARGE.
[2024-04-13] MEDS ORDERED: PredniSONE 5 MG Tab PO SCH (09:00)
== END 2024-04-10 12:19 | disposition hospice, home (50) | DRG 871 ==
LOC: ER 13:07 → MEDS 21:56 → ENPENDDIS 04-10 10:19 → MEDS 04-10 12:19
PROVIDERS: Internal Medicine; Internal Medicine Nephrology; Student in an Organized Health Care Education/Training Program; ADMIT Internal Medicine
PROC: 3E03329 Introduction of Other Anti-infective into Peripheral Vein, Percutaneous Approach (ICD-10-PCS; principal; 2024-04-04)
PROC: 4A033R1 Measurement of Arterial Saturation, Peripheral, Percutaneous Approach (ICD-10-PCS; 2024-04-05)
PROC: 5A09357 Assistance with Respiratory Ventilation, Less than 24 Consecutive Hours, Continuous Positive Airway Pressure (ICD-10-PCS; 2024-04-06)
DX: A41.9 Sepsis, unspecified organism (principal); G92.8 Other toxic encephalopathy; J96.01 Acute respiratory failure with hypoxia; G93.41 Metabolic encephalopathy; N17.9 Acute kidney failure, unspecified; N30.00 Acute cystitis without hematuria; E87.4 Mixed disorder of acid-base balance; M62.82 Rhabdomyolysis; E87.0 Hyperosmolality and hypernatremia; Z66 Do not resuscitate; N18.9 Chronic kidney disease, unspecified; E11.22 Type 2 diabetes mellitus with diabetic chronic kidney disease; E78.5 Hyperlipidemia, unspecified; I12.9 Hypertensive chronic kidney disease with stage 1 through stage 4 chronic kidney disease, or unspecified chronic kidney disease; J45.909 Unspecified asthma, uncomplicated; M79.7 Fibromyalgia; N20.0 Calculus of kidney; E86.9 Volume depletion, unspecified; D63.1 Anemia in chronic kidney disease; F32.A Depression, unspecified; E86.0 Dehydration; R65.20 Severe sepsis without septic shock; I95.9 Hypotension, unspecified; K21.9 Gastro-esophageal reflux disease without esophagitis; E11.42 Type 2 diabetes mellitus with diabetic polyneuropathy; E83.39 Other disorders of phosphorus metabolism; Z88.0 Allergy status to penicillin; Z91.041 Radiographic dye allergy status; Z88.8 Allergy status to other drugs, medicaments and biological substances; Z79.899 Other long term (current) drug therapy; Z79.84 Long term (current) use of oral hypoglycemic drugs; Z87.19 Personal history of other diseases of the digestive system; Z90.49 Acquired absence of other specified parts of digestive tract; Z86.73 Personal history of transient ischemic attack (TIA), and cerebral infarction without residual deficits
CPT/HCPCS: 0241U; 36415; 36600; 51702; 70450; 71045; 74176; 80053; 80069; 81001; 82550; 82803; 82947; 83605; 83690; 83735; 83880; 84439; 84443; 84484; 85014; 85018; 85025; 85730; 87040; 87086; 93005; 93010; 94660; 94760; 94762; 96361-59; 96365-59; 96375-59; 99285-25; A9270; J0696; J1644; J1720; J2060; J2405; J3010; J7030; J7070; J7120